=== PATIENT | female | born 1975 | race Caucasian/White ===

== ENCOUNTER 2018-07-03 18:24 | Emergency (ER) | payer OTHER ==
[2018-07-03 19:02] VITALS: BP 129/86; PULSE 97; TEMP 98.4; BMI 32.0
--- NOTE | 2018-07-03 20:59 | PDOC ---
History of Present Illness - General Chief Complaint: Shortness of Breath Stated Complaint: LIFT SIDE PAIN - History of Present Illness Initial Comments: The patient is a 42F w/ a PMH of HTN who presents for evaluation of 2d of worsening L back pain. Describes the paint as a 'pushing' is located mid- thoracic, L paraspinous over approximately T4-6. It does not radiate, is worse with movement as well as deep inspiration. She denies having this type of pain before. It began when she awoke 2d ago. She tried one of her mother's vicodin yesterday with minimal relief. She denies recent fevers/chills, exertion/straining, injury/trauma. Denies chest pain, changes in sensation, changes in vision, N/V/C/D, dysuria, or blood in her urine or stool 07/03/18 22:09 Past History - Past Medical History Allergies/Adverse Reactions: Allergies Allergy/AdvReac Type Severity Reaction Status Date / Time No Known Allergies Allergy Verified 07/03/18 18:59 Home Medications: Ambulatory Orders Lidocaine 5% Patch [Lidoderm Patch -] 1 patch TP DAILY #7 patch 07/04/18 Naproxen 500 mg PO BID 10 Days #20 tablet 07/04/18 CVA: No COPD: No - Immunization History Immunization Up to Date: Yes - Suicide/Smoking/Psychosocial Hx Smoking Status: Yes Smoking History: Current every day smoker Number of Cigarettes Smoked Daily: 5 Information on smoking cessation initiated: No Hx Alcohol Use: No Drug/Substance Use Hx: No Substance Use Type: None Review of Systems - Review of Systems Able to Perform ROS?: Yes Comments:: GENERAL/CONSTITUTIONAL: No fever or chills. No weakness HEAD, EYES, EARS, NOSE AND THROAT: No change in vision. No ear pain or discharge. No sore throat CARDIOVASCULAR: No chest pain or LE swelling GASTROINTESTINAL: No nausea, vomiting, diarrhea or constipation GENITOURINARY: No dysuria, frequency, or change in urination MUSCULOSKELETAL: per HPI SKIN: No rash NEUROLOGIC: No headache, vertigo, loss of consciousness, or change in strength/ sensation ENDOCRINE: No increased thirst. No abnormal weight valdes HEMATOLOGIC/LYMPHATIC: No anemia, easy bleeding, or history of blood clots ALLERGIC/IMMUNOLOGIC: No hives or skin allergy 07/03/18 20:59 Is the patient limited Hebrew proficient: No *Physical Exam - Vital Signs Last Vital Signs Temp Pulse Resp BP Pulse Ox 98.4 F 97 H 16 129/86 98 07/03/18 19:00 07/03/18 19:00 07/03/18 19:00 07/03/18 19:00 07/03/18 19:00 - Physical Exam Comments: GENERAL: Awake, alert, and fully oriented, in no acute distress HEAD: No signs of trauma, normocephalic, atraumatic EYES: PERRLA, EOMI, sclera anicteric, conjunctiva clear ENT: Hearing grossly normal, nares patent, oropharynx clear without exudates. Moist mucosa LUNGS: No distress, speaks full sentences, clear to auscultation bilaterally HEART: Regular rate and rhythm, normal S1 and S2, no murmurs appreciated, peripheral pulses normal and equal bilaterally BACK: L thoracic TTP at approx T4-6; No midline TTP; no abrasion/rash ABDOMEN: Soft, nontender, normoactive bowel sounds. No guarding, no rebound. No masses EXTREMITIES : Normal inspection, Normal range of motion, no edema. No clubbing or cyanosis NEUROLOGICAL: Cranial nerves II through XII grossly intact. Normal speech, normal gait, no focal sensorimotor deficits SKIN: Warm, Dry, normal turgor, no rashes or lesions noted 07/03/18 20:59 ED Treatment Course - LABORATORY CBC & Chemistry Diagram: 07/03/18 23:38 07/03/18 23:38 Medical Decision Making - Medical Decision Making The patient is a 42F who presents with 2d of L parascapular pain ED Course CMP, CBC, cardiac enzymes CXR ECG Tylenol 975mg PO once Lidoderm patch 07/03/18 22:16 CXR w/o evidence of PNA, PNX, widened mediastinum ECG NSR Mild pain relief w/ tylenol and lidoderm Labs pending 07/03/18 23:42 Reports pain unchanged -Toradol 30mg IM once 07/04/18 00:19 No leukocytosis No anemia No ADRIEN Lytes wnl Trop I neg Serum b-hCG neg 07/04/18 00:57 Percocet 5mg PO once for pain Reports hx of cervial and lumbar slipped disc Reports history of Vicodin and Percocet use in past but denies current everyday usage No PCP 07/04/18 01:50 Will give referral to [facility] Plan for D/C Rx for lidoderm patches and Naproxen sent to pharmacy Discharge instructions and return precautions given Plan discussed with patient who is in agreement and verbalized understanding Dispo: home *DC/Admit/Observation/Transfer Diagnosis at time of Disposition: Back pain Qualifiers: Back pain location: thoracic back pain Chronicity: acute Back pain laterality: left Qualified Code(s): M54.6 - Pain in thoracic spine - Discharge Dispostion Disposition: HOME Condition at time of disposition: Stable Decision to Admit order: No - Prescriptions Prescriptions: Lidocaine 5% Patch [Lidoderm Patch -] 1 patch TP DAILY #7 patch Naproxen 500 mg PO BID 10 Days #20 tablet - Referrals Referrals: [facility] [place] [Provider Group] - Patient Instructions Printed Discharge Instructions: DI for Thoracic Back Pain Additional Instructions: You were seen in the Emergency Department today for back pain. You were evaluated and found to NOT have any signs of pneumonia, fracture, infection, or electrolyte abnormality. Please review the handout provided at discharge. Follow up with your primary care physician or with the referral given for further discussion of pain management. Return to the Emergency Department if you develop worsening pain, shortness of breath, chest pain, dizziness, new numbness/tingling, or any new/concerning symptoms - Post Discharge Activity Forms/Work/School Notes: Back to Work
--- NOTE | 2018-07-03 21:41 | PDOC ---
Attending Attestation - HPI HPI: 07/03/18 22:16 The patient is a 42 year old female with a past medical history of hypertension who presents to the emergency department for evaluation of a 2 day history of non radiating left back pressure, worse with movement, palpation, and deep inspiration. She reports waking up from sleep due to the pain. Smokes 3 cigarettes a day. The patient denies chest pain, headache, and dizziness. Denies fevers, chills, nausea, vomiting, diarrhea, and constipation. - Physicial Exam PE: Heavy set 42 y/o female in no acute distress head ncat neck supple Heart RRR. No gallops, murmurs, or rubs. lungs clear to auscultation bilaterally abd protuberant Musc (+)Pinpoint tenderness to right scapula. ext no e/c/c, MAEx4 skin warm and dry,no rashes neuro A&Ox3,no gross focal neuro deficits <Mariya Guerrero - Last Filed: 07/04/18 01:38> - Resident Resident Name: Angel Luis Montenegro - ED Attending Attestation I have performed the following: I have examined & evaluated the patient, The case was reviewed & discussed with the resident, I agree w/resident's findings & plan, Exceptions are as noted - Medical Decision Making 07/04/18 02:22 cxr no ptx,no effusion,no infiltrates ekg nsr pt has tenderness upon palpation of left scapula imp musculoskelatal pain <Madian Peralta - Last Filed: 07/04/18 02:23> Attestations - Attestations Documentation prepared by Mariya Guerrero, acting as director medical surgical for Madina Peralta MD. <Mariya Guerrero - Last Filed: 07/04/18 01:38>
[2018-07-03] MEDS ORDERED: LIDOCAINE PATCH REMOVAL MC SCH (22:00)
[2018-07-03] MEDS ORDERED: LIDOCAINE 5% TOPICAL PATCH TP ONE (22:03)
[2018-07-03] MEDS ORDERED: ACETAMINOPHEN 325 MG TABLET (FP) PO ONE (22:03)
[2018-07-03] MEDS ORDERED: ACETAMINOPHEN 325 MG TABLET (FP) ONE (22:09)
[2018-07-03] MEDS ORDERED: LIDOCAINE 5% TOPICAL PATCH ONE (22:09)
[2018-07-03 23:52] LABS: HEMATOCRIT 36.9 % (32.4-45.2); MCH 31.2 pg (25.7-33.7); MCHC 35.3 g/dl (32.0-36.0); MEAN CELL VOLUME 88.2 fl (80-96); MEAN PLT VOLUME 8.2 fl (7.5-11.1); PLATELET COUNT 232 K/MM3 (134-434); RBC 4.18 M/mm3 (3.60-5.2); RDW 13.7 % (11.6-15.6); WHITE BLOOD COUNT 6.2 K/mm3 (4.0-10.0)
[2018-07-04] MEDS ORDERED: KETOROLAC TROMETHAMINE 30 MG/1 ML VIAL IM ONE (00:19)
[2018-07-04 00:20] LABS: ALBUMIN 3.6 g/dl (3.4-5.0); ALK PHOS 54 U/L (45-117); ANION GAP 7 MMOL/L (8-16); BILIRUBIN,TOTAL 0.3 mg/dL (0.2-1); BLOOD UREA NITROGEN 15 mg/dL (7-18); CALCIUM 9.1 mg/dL (8.5-10.1); CHLORIDE 100 mmol/L (98-107); CO2 30 mmol/L (21-32); CREATININE 0.8 mg/dL (0.55-1.3); GLUCOSE,RANDOM 196 mg/dL (74-106); POTASSIUM 3.8 mmol/L (3.5-5.1); SGOT/AST 51 U/L (15-37); SGPT/ALT 74 U/L (13-61); SODIUM 137 mmol/L (136-145); TOT PROT 7.3 g/dl (6.4-8.2)
[2018-07-04] MEDS ORDERED: KETOROLAC TROMETHAMINE 30 MG/1 ML VIAL ONE (00:32)
--- NOTE | 2018-07-04 12:32 | EKG ---
Test Reason : Blood Pressure : / mmHG Vent. Rate : 094 BPM Atrial Rate : 094 BPM P-R Int : 114 ms QRS Dur : 076 ms QT Int : 374 ms P-R-T Axes : 043 022 030 degrees QTc Int : 467 ms NORMAL SINUS RHYTHM NORMAL ECG Confirmed by MD CUEVAS GREGORY ([id number]) on 07/04/2018 12:32:33 PM Referred By: Confirmed By:YANI CUEVAS MD
== END 2018-07-04 02:51 | disposition home or self-care (01) ==
LOC: JER 18:24
PROC: 3E0233Z Introduction of Anti-inflammatory into Muscle, Percutaneous Approach (ICD-10-PCS; principal; 2018-07-03)
DX: M54.6 Pain in thoracic spine (principal); I10 Essential (primary) hypertension; F17.210 Nicotine dependence, cigarettes, uncomplicated
CPT/HCPCS: 36415; 71045-TC-FY; 80053; 82550; 84484; 84702; 85027; 93005; 93010; 96372; 99282-25